=== PATIENT | female | born 1970 | race Caucasian/White ===

== ENCOUNTER 2019-09-16 06:00 | Outpatient (RCR) | payer BC, SELFPAY | END 2019-10-05 23:59 | disposition home or self-care (01) | LOC: SPT 06:00 | PROVIDERS: Family Provider Family Medicine; Referring Provider Physician Assistant; Visit Provider Physician Assistant | DX: Z47.89 Encounter for other orthopedic aftercare (principal) | CPT/HCPCS: 97110; 97161 ==

== ENCOUNTER 2019-10-06 06:00 | Outpatient (RCR) | payer BC, SELFPAY | END 2019-11-04 23:59 | disposition home or self-care (01) | LOC: SPT 06:00 | PROVIDERS: Family Provider Family Medicine; Referring Provider Physician Assistant; Visit Provider Physician Assistant | DX: Z47.89 Encounter for other orthopedic aftercare (principal); M25.511 Pain in right shoulder; M25.611 Stiffness of right shoulder, not elsewhere classified | CPT/HCPCS: 97110; 97140 ==

== ENCOUNTER 2019-11-05 06:00 | Outpatient (RCR) | payer BC, SELFPAY | END 2019-12-05 23:59 | disposition home or self-care (01) | LOC: SPT 06:00 | PROVIDERS: PCP Family Medicine; Referring Provider Physician Assistant; Visit Provider Physician Assistant | DX: Z47.89 Encounter for other orthopedic aftercare (principal); M25.611 Stiffness of right shoulder, not elsewhere classified; M25.511 Pain in right shoulder | CPT/HCPCS: 97110; 97140 ==

== ENCOUNTER 2021-02-11 14:42 | Outpatient (CLI) | payer OTHER, SELFPAY ==
[2021-02-11 14:50] VITALS: BP 137/89; PULSE 82; RESP 16; TEMP 36.5; O2SAT 97; BMI 26.6
[2021-02-11 15:15] VITALS: BP 140/89; PULSE 74; RESP 18; TEMP 36.1; O2SAT 96
--- NOTE | 2021-02-11 15:54 | A.OFFVIS_ITS ---
Patient Information Symptom onset date: 02/10/21 Treatment prior to arrival: none [facility] COVID test results: No Data to Display outside results available, scanned Criteria/Plan Inclusion/Exclusion Criteria age >/= 12 years, weight >/= 40kg /88lbs, symptom onset less than 10 days ago and + direct Sars-Cov-2 test less than 7-10 days ago cardiovascular disease or htn not requiring hospitalization, not requiring oxygen (if not chronically on oxygen) and no increase oxygen requirement (if chronically on oxygen) Patient education patient/caregiver received/reviewed fact sheet, Emergency Use Authorization /unapproved drug status discussed with patient/caregiver, alternatives to this treatment discussed with patient/caregiver, risks and benefits of medication reviewed with patient/caregiver, patient/caregiver given opportunity for questions, which were answered and patient/caregiver consents to receiving Monoclonal Antibody Treatment Plan for treatment Meets criteria for Monoclonal Antibody infusion Ordering Monoclonal Antibody infusion for today
[2021-02-11 16:17] VITALS: BP 166/99; PULSE 72; RESP 18; TEMP 36.3; O2SAT 96
== END 2021-02-11 14:43 | disposition home or self-care (01) ==
PROVIDERS: PCP Family Medicine; Visit Provider Hospitalist
DX: U07.1 COVID-19 (principal)
CPT/HCPCS: 96365

== ENCOUNTER 2024-09-08 11:01 | Emergency (ER) | payer MEDICAID, SELFPAY ==
[2024-09-08 11:05] VITALS: BP 142/82; PULSE 114; RESP 18; TEMP 36.8; O2SAT 96; BMI 29.0
--- NOTE | 2024-09-08 11:05 | XR_ITS ---
WS: [id number] XR chest 1V portable [id number] REASON FOR EXAM: paresthesias FINDINGS: The heart and the mediastinum are within normal limits. Calcified granulomatous disease bilaterally. Ill-defined linear density in the left lower lung field is felt to represent atelectasis or fibrotic scar. Lung ross are otherwise clear with no evidence of acute abnormality. No acute pleural abnormality. Total reverse right shoulder arthroplasty. Moderately severe osteoarthropathy of the left shoulder. Moderate degenerative spondylosis of the mid and lower thoracic spine. XR/XR chest 1V portable [id number] IMPRESSION: No acute chest abnormality.
--- NOTE | 2024-09-08 11:05 | CT_ITS ---
WS: [id number] CT HEAD NONCONTRAST HISTORY: Symptoms of acute stroke, left-sided weakness. TECHNIQUE: Contiguous axial imaging performed through the brain. Bone and soft tissue windows. Sagittal and coronal reformats reviewed. All CT scans at [facility] use at least one of these dose optimization techniques: automated exposure control; mA and/or kV adjustment per patient size (includes targeted exams where dose is matched to clinical indication); or iterative reconstruction. DLP: 1094.50 mGy COMPARISON: None available. No acute intracranial hemorrhage, midline shift or mass effect. No significant atrophy. No prior infarct or significant small vessel disease. Ventricles: Normal size with no hydrocephalus. Paranasal sinuses: As visualized are clear. Mastoid air cells: Well pneumatized. Calvarium and scalp: Skull is intact with no soft tissue edema or swelling. CT/CT head thrombolytic [id number] IMPRESSION: Negative head CT. Notified Gregg Belcher MD at 09/08/2024 11:18 AM.
--- NOTE | 2024-09-08 11:05 | ECG_ITS ---
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 Measurements Intervals [place] Rate: 106 P: 46 WY: 159 QRS: 69 QRSD: 89 T: 62 QT: 361 QTc: 480 Interpretive Statements SINUS TACHYCARDIA No previous ECG available for comparison Electronically Signed On 09-11-2024 18:08:51 [employer] CONVERTER by Burke Malik M.D. [id number]
--- NOTE | 2024-09-08 11:08 | W.ED.NEUROSD ---
HPI - Neuro Symptoms/Deficit General: Chief Complaint: Neuro Symptoms/Deficit Stated Complaint: stroke like symptoms Time Seen by Provider: 09/08/24 11:03 Source: patient Mode of arrival: ambulatory Limitations: no limitations History of Present Illness: 53-year-old female states that she woke up this morning feeling tingling in her hands she states that throughout the day started progressive having some tingling to the left side of her face and down her arm. She denies any slurred speech denies headache denies any difficulty walking denies any vision changes. Associated symptoms: Deny chest pain, headache(s), nausea or vomiting Related Data Home Medications ?Medication ?Instructions ?Recorded ?Confirmed diclofenac sodium 75 mg 75 mg PO BID 09/08/24 09/08/24 tablet,delayed release hydrocodone 10 mg-acetaminophen 1 tab PO Q4H 09/08/24 09/08/24 325 mg tablet lisdexamfetamine 60 mg capsule 60 mg PO DAILY 09/08/24 09/08/24 (Vyvanse) losartan 50 mg tablet 50 mg PO DAILY 09/08/24 09/08/24 pantoprazole 40 mg tablet,delayed 40 mg PO BID 09/08/24 09/08/24 release sertraline 50 mg tablet 50 mg PO DAILY 09/08/24 09/08/24 tamsulosin 0.4 mg capsule 0.4 mg PO DAILY 09/08/24 09/08/24 trazodone 50 mg tablet 50 - 100 mg PO QPM 09/08/24 09/08/24 Previous Rx's ?Medication ?Instructions ?Recorded aspirin 81 mg capsule 81 mg PO DAILY #30 caps 09/08/24 atorvastatin 40 mg tablet (Lipitor) 40 mg PO DAILY #30 tabs 09/08/24 Allergies Allergy/AdvReac Type Severity Reaction Status Date / Time No Known Allergies Allergy Verified 02/11/21 15:33 Review of Systems Const: Denies: fever(s), chills, body aches or change in appetite Eyes: Denies: blurry vision ENMT: Denies: throat pain or dental pain Card: Denies: chest pain Resp: Denies: dyspnea GI: Denies: abdominal pain, nausea, vomiting or diarrhea Musc: Denies: neck pain or back pain Skin/Breast: Denies: rash Neuro: Reports: numbness in extremities; Denies: headache(s) NIH stroke score NIHSS: Level Of Consciousness - 1a: 0 Level Of Consciousness Questions - 1b: Both Correct Level Of Consciousness Commands - 1c: Both Correct Best Gaze - 2: Normal Visual Mehta - 3: No Visual Loss Facial Palsy - 4: Normal Motor Arm Right - 5: No Drift Motor Arm Left - 5: No Drift Motor Leg Right - 6: No Drift Motor Leg Left - 6: No Drift Limb Ataxia - 7: Absent Sensory - 8: Mild To Moderate Loss Best Language - 9: No Aphasia Dysarthia - 10: Normal Extinction And Inattention - 11: 0 Score: Total Score: 1 Physical Exam Const: COMMON NORMALS: patient oriented x3 HENMT: COMMON NORMALS: normocephalic and atraumatic HEAD & SCALP: normocephalic and atraumatic Eye: COMMON NORMALS: Equal, round and reactive pupils present and EOMs intact bilaterally PUPIL: Yes Equal, round and reactive pupils present Neck/C-Spine: COMMON NORMALS: full ROM and supple Chest: COMMONS NORMALS: normal inspection of the chest Resp: COMMON NORMALS: normal respiratory effort, No retractions, No use of accessory muscles and clear to auscultation bilaterally AUSCULTATION: clear to auscultation bilaterally Cardio: COMMON NORMALS: regular rate, regular rhythm and No murmurs present (Cardio) RATE: regular rate RHYTHM: regular rhythm GI: COMMON NORMALS: Normal to inspection, nondistended, normoactive bowel sounds present, Soft to palpation, non-tender and no masses PALPATION: Yes Soft to palpation Extremity: COMMON NORMALS: normal to inspection and full ROM Neuro: COMMON NORMALS: patient oriented x3, moves all extremities and no focal motor deficits CRANIAL NERVES: Yes CN normal except as noted GAIT: Yes Normal gait present MOTOR EXAM: 5/5 motor strength present throughout Psych: COMMON NORMALS: mental status grossly normal, Normal thought process present and cooperative THOUGHT PROCESS: Normal thought process present Skin: COMMON NORMALS: no rashes or lesions noted and no wounds GENERAL SKIN EXAM: no rashes or lesions noted Course Vital Signs: Vital signs: Vital Signs Temperature 98.3 F 09/08/24 11:05 Pulse Rate 94 09/08/24 15:42 Respiratory Rate 18 09/08/24 11:05 Blood Pressure 127/86 09/08/24 15:42 Pulse Oximetry 95 09/08/24 15:42 Oxygen Delivery Me thod Room Air 09/08/24 14:44 MDM - Neuro Symptoms/Deficit Medical Decision Making Patient presents here with left-sided facial numbness was going to admit she did not want to be admitted so ordered MRI along with ultrasounds the ER shows no signs of acute stroke we will start her on atorvastatin along with aspirin I spoke to Dr. Lu was seen patient ER will follow-up she is stable for discharge return if worsening. Medical Records I reviewed the patient's medical records. Lab Data I reviewed the patient's lab results. 09/08/24 11:33 09/08/24 11:33 Radiology Impressions Chest X-Ray 09/08/24 11:05 IMPRESSION: No acute chest abnormality. Head CT 09/08/24 11:05 IMPRESSION: Negative head CT. Notified Gregg Belcher MD at 09/08/2024 11:18 AM. Head MRI 09/08/24 12:16 IMPRESSION: 1. Normal MRI brain with contrast. 2. No acute or remote infarct. 3. No hemorrhage. Laboratory Results WBC 9.73 10^3/uL (3.29-11.43) 09/08/24 11:33 RBC 4.39 10^6/uL (3.85-5.65) 09/08/24 11:33 Hgb 13.50 g/dL (11.27-16.99) 09/08/24 11:33 Hct 41.7 % (36-47) 09/08/24 11:33 MCV 95.0 fl (85-98) 09/08/24 11:33 MCH 30.8 pg (27-33) 09/08/24 11:33 MCHC 32.4 g/dL (30-55) 09/08/24 11:33 RDW 13.3 % (12.1-15.1) 09/08/24 11:33 Plt Count 249 10^3/cmm (157-399) 09/08/24 11:33 MPV 9.6 fL (7.4-10.4) 09/08/24 11:33 Neut % (Auto) 67.8 % 09/08/24 11:33 Lymph % (Auto) 25.3 % 09/08/24 11:33 Mcminn % (Auto) 5.7 % 09/08/24 11:33 Eos % (Auto) 0.6 % 09/08/24 11:33 Baso % (Auto) 0.3 % 09/08/24 11:33 Neut # (Auto) 6.60 10^3/uL (1.8-7.7) 09/08/24 11:33 Lymph # (Auto) 2.5 10^3/uL (0.8-4.8) 09/08/24 11:33 Mcminn # (Auto) 0.6 10^3/uL (0.2-0.9) 09/08/24 11:33 Eos # (Auto) 0.1 10^3/uL (0.0-0.8) 09/08/24 11:33 Baso # (Auto) 0.0 10^3/uL (0.0-0.1) 09/08/24 11:33 Nucleated RBC % (auto) 0 % 09/08/24 11:33 Nucleated RBCs # 0.0 /100WBC 09/08/24 11:33 PT 11.60 SECONDS (12.1-14.9) L 09/08/24 11:33 INR 0.80 (0.8-1.2) 09/08/24 11:33 APTT 25.4 SECONDS (23.9-36.7) 09/08/24 11:33 Sodium 140 mmol/L (136-145) 09/08/24 11:33 Potassium 3.4 mmol/L (3.5-5.1) L 09/08/24 11:33 Chloride 92 mmol/L (98-107) L 09/08/24 11:33 Carbon Dioxide 32 mmol/L (22-29) H 09/08/24 11:33 Anion Gap 19.4 (5-19) H 09/08/24 11:33 BUN 10 mg/dL (6-20) 09/08/24 11:33 Creatinine 1.1 mg/dL (0.5-0.9) H 09/08/24 11:33 GFR Calculation 52.0 mL/min (90-130) L 09/08/24 11:33 Glucose 139 mg/dL (65-115) H 09/08/24 11:33 POC Glucose 152 mg/dL (70-110) H 09/08/24 11:23 Calculated Osmolality 291 mOsm/kg (285-295) 09/08/24 11:33 Calcium 9.3 mg/dL (8.5-10.5) 09/08/24 11:33 Total Bilirubin 0.5 mg/dL (0.15-1.2) 09/08/24 11:33 AST 37 U/L (0-32) H 09/08/24 11:33 ALT 47 U/L (0-33) H 09/08/24 11:33 Alkaline Phosphatase 105 U/L (35-105) 09/08/24 11:33 Total Protein 7.2 g/dL (6.6-8.7) 09/08/24 11:33 Albumin 4.2 g/dL (3.5-5.2) 09/08/24 11:33 Globulin 3.0 g/dL (1.3-4.6) 09/08/24 11:33 Urine Color Yellow (Yellow) 09/08/24 14:50 Urine Appearance Clear (CLEAR) 09/08/24 14:50 Urine pH 5.5 (5-7) 09/08/24 14:50 Ur Specific [place] 1.015 (1.005-1.030) 09/08/24 14:50 Urine Protein Negative (Negative) 09/08/24 14:50 Urine Glucose (UA) Negative (Normal) 09/08/24 14:50 Urine Ketones Negative (Negative) 09/08/24 14:50 Urine Blood Negative (Negative) 09/08/24 14:50 Urine Nitrate Negative (Negative) 09/08/24 14:50 Urine Bilirubin Negative (Negative) 09/08/24 14:50 Urine Urobilinogen 0.2 mg/dL (Negative) 09/08/24 14:50 Ur Leukocyte Esterase Negative (Negative) 09/08/24 14:50 Amorphous Sediment Not Reportable 09/08/24 14:50 Urine Opiates Screen Positive ng/mL (Negative) H 09/08/24 14:50 Ur Barbiturates Screen Negative ng/mL (Negative) 09/08/24 14:50 Ur Phencyclidine Scrn Negative ng/mL (Negative) 09/08/24 14:50 Ur Amphetamines Screen Positive ng/mL (Negative) H 09/08/24 14:50 U Benzodiazepines Scrn Positive ng/mL (Negative) H 09/08/24 14:50 Urine Cocaine Screen Negative ng/mL (Negative) 09/08/24 14:50 U Marijuana (THC) Screen Negative ng/mL (Negative) 09/08/24 14:50 All radiology interpretation(s) finalized by discharge EKG Data EKG 1: I personally reviewed and interpreted this EKG as follows: EKG interpretation date: 09/08/24 EKG interpretation time: 11:05 Interpretation: sinus tach hr [address] elevation qrs 89 qtc 423 Discharge Plan Discharge Patient Disposition: Home Clinical Impression: Numbness and tingling of left side of face Condition: Stable Prescriptions: New aspirin 81 mg capsule 81 mg PO DAILY Qty: 30 0RF atorvastatin [Lipitor] 40 mg tablet 40 mg PO DAILY Qty: 30 0RF No Action losartan 50 mg tablet 50 mg PO DAILY trazodone 50 mg tablet 50 - 100 mg PO QPM hydrocodone-acetaminophen 10-325 mg tablet 1 tab PO Q4H tamsulosin 0.4 mg capsule 0.4 mg PO DAILY pantoprazole 40 mg tablet,delayed release (DR/EC) 40 mg PO BID diclofenac sodium 75 mg tablet,delayed release (DR/EC) 75 mg PO BID sertraline 50 mg tablet 50 mg PO DAILY lisdexamfetamine [Vyvanse] 60 mg capsule 60 mg PO DAILY Discharge Orders: Discharge ED (Routine); Ordered 09/08/24 Ordered By: Gregg Belcher Referrals: Nathaniel Lu MD [Physician] - 4-7 days Riaz Pelaez MD [Primary Care Provider] - Discharge Diet: Advance as tolerated Discharge Activity: Resume usual activity Patient Instructions: Paresthesia (ED) Print Language: Nauruan Coding Level of Care Code ED Employee Counselor for Jaimeg Mindy
[2024-09-08 11:29] LABS: Glucose Point of Care 152 mg/dL (70-110)
[2024-09-08 11:40] LABS: Basophils % 0.3 %; Eosinophils # 0.1 10^3/uL (0.0-0.8); Eosinophils % 0.6 %; Hematocrit 41.7 % (36-47); Lymphocytes # 2.5 10^3/uL (0.8-4.8); Lymphocytes % 25.3 %; Mean Corpuscular HGB Conc 32.4 g/dL (30-55); Mean Corpuscular Hemoglobin 30.8 pg (27-33); Mean Platelet Volume 9.6 fL (7.4-10.4); Monocytes # 0.6 10^3/uL (0.2-0.9); Monocytes % 5.7 %; Neutrophils % 67.8 %; Nucleated Red Blood Cells % 0 %; Platelet Count 249 10^3/cmm (157-399); Red Blood Count 4.39 10^6/uL (3.85-5.65); Red Cell Distribution Width 13.3 % (12.1-15.1); White Blood Count 9.73 10^3/uL (3.29-11.43)
--- NOTE | 2024-09-08 11:50 | PM.CONSULT ---
Providers/Reason For Consult Consulting Physician/Specialty*: Nathaniel Lu MD neurology and epilepsy Reason for Consult*: Acute care/code stroke emergency department room #15 Primary Care Provider: Riaz Pelaez MD History of Present Illness History of Present Illness Sarah Franco is a 53 year old female with a history of hypertension and bilateral carpal tunnel release in the past. The patient stated that she awakened around 6:45 AM on 09/08/2024 and was experiencing bilateral hand numbness and tingling. Approximately 1-1/2 hours later the patient stated she began experiencing numbness in the left and right face but more over the left face and a V1 through V3 distribution. The patient denied weakness or speech difficulty or visual changes. Code stroke was initiated at 11:06 AM on 09/08/2024. Stat noncontrast head CT obtained on 09/08/2024 revealed no acute findings. NIH score = 1 (decreased sensation left face and a V1 through V3 distribution and left arm) Glucose Accu-Chek 152. Note: Since the patient symptoms were present upon awakening and her NIH score =1. The patient was not a candidate for intravenous thrombolytics and no intravenous thrombolytics were administered. Drug allergies: None Current medications: Vyvanse 60 mg p.o. daily Xanax Neurontin Losartan 50 mg p.o. daily Protonix 40 mg p.o. twice daily Diclofenac sodium 75 mg p.o. twice daily Hydrocodone/acetaminophen 1 p.o. every 4 hours Zoloft 50 mg p.o. daily Flomax 0.4 mg p.o. daily Trazodone 50 to 100 mg p.o. nightly Past medical history: Hypertension Bilateral carpal tunnel release, remote Cholecystectomy Habits: The patient vapes nicotine. Patient was educated on potential health risks associated with vaping. Family history: Remarkable for a maternal grandfather who experienced a myocardial infarction Remarkable for a paternal grandfather who experienced a stroke Remarkable for father who experienced a myocardial infarction Review of Systems General: Reports: 10 or more systems reviewed and unremarkable except in HPI and below Medications/Allergies Home Medications ?Medication ?Instructions ?Recorded ?Confirmed ?Last Taken ?Type diclofenac sodium 75 mg 75 mg PO BID 09/08/24 09/08/24 Unknown History tablet,delayed release hydrocodone 10 mg-acetaminophen 1 tab PO Q4H 09/08/24 09/08/24 Unknown History 325 mg tablet lisdexamfetamine 60 mg capsule 60 mg PO DAILY 09/08/24 09/08/24 Unknown History (Vyvanse) losartan 50 mg tablet 50 mg PO DAILY 09/08/24 09/08/24 Unknown History pantoprazole 40 mg tablet,delayed 40 mg PO BID 09/08/24 09/08/24 Unknown History release sertraline 50 mg tablet 50 mg PO DAILY 09/08/24 09/08/24 Unknown History tamsulosin 0.4 mg capsule 0.4 mg PO DAILY 09/08/24 09/08/24 Unknown History trazodone 50 mg tablet 50 - 100 mg PO QPM 09/08/24 09/08/24 Unknown History Allergies Allergy/AdvReac Type Severity Reaction Status Date / Time No Known Allergies Allergy Verified 02/11/21 15:33 Vitals/I&O/Wt Last Vital Signs Temp 98.3 F 09/08/24 11:05 Pulse 114 H 09/08/24 11:05 Resp 18 09/08/24 11:05 BP 142/82 09/08/24 11:05 Pulse Ox 96 09/08/24 11:05 O2 Del Method Room Air 09/08/24 11:05 Weight last 48 hrs Weight 174 lb 2.643 oz Physical Exam Narrative: Stat noncontrast head CT obtained on 09/08/2024 revealed no acute findings. NIH score = 1 (decreased sensation left face and a V1 through V3 distribution and left arm) Glucose Accu-Chek 152 . The patient is alert and oriented x 3. Speech fluent. Head normocephalic. Neck supple. Cranial nerves II through XII revealed decreased sensation over the left face and a V1-V3 distribution as well as left upper extremity. Other cranial nerves were intact. Pupils 3 to 4 mm round reactive to light and accommodation. Extraocular movements intact. Visual ross full via confrontation. Motor testing 5/5 bilaterally. There was no drift. There was no ataxia in the upper or lower extremities. There was no extinction on double sensory stimulation. Deep tendon reflex revealed plantar responses bilaterally. Throat clear. Lungs clear. Heart regular rhythm and rate. Extremities were negative for cyanosis. Data 09/08/24 11:33 09/08/24 11:33 A&P Assessment and plan (1) Numbness and tingling of left side of face: Impression: 1. 53 year old female with a history of hypertension and remote bilateral carpal tunnel release who stated that she awakened around 6:45 AM on 09/08/2024 and was experiencing bilateral hand numbness and tingling. Approximately 1-1/2 hours later the patient stated she began experiencing numbness in the left and right face but more over the left face and a V1 through V3 distribution. The patient denied weakness or speech difficulty or visual changes. Code stroke was initiated at 11:06 AM on 09/08/2024. Assess for right thalamic stroke note: Since the patient's last known well could not be determined and stat noncontrast head CT obtained on 09/08/2024 revealed no acute findings and NIH score = 1 (decreased sensation left face and a V1 through V3 distribution and left arm) and Glucose Accu-Chek 152, the patient was not a candidate for intravenous thrombolytics and no intravenous thrombolytics were administered. Plan: 1. Recommend obtaining head MRI with and without contrast with MRA of the head and neck to assess for space-occupying lesions, right thalamic stroke and evaluate for extracranial and intracranial stenosis 2. Recommend obtaining 2D echocardiogram to assess for embolic source for possible stroke 3. Recommend starting low-dose aspirin 81 mg p.o. every morning with Crestor 20 mg p.o. nightly per NIH stroke protocol 4. Neurochecks and vital signs per stroke protocol 5. Recommend obtaining Occupational Therapy and physical therapy consults 6. Patient educated on potential health risks associated with vaping nicotine 7. Stroke education/stroke pamphlet for patient and family 8. If head MRI reveals signs of acute stroke recommend patient discontinue diclofenac (2) Left sided numbness: (3) Paresthesia: PDMP PDMP Reviewed: Not Reviewed Consult Attestations Medical Necessity Statement: The patient was evaluated by neurology for acute care/code stroke emergency department room #15 Coding Level of Care Code 71769 Diagnoses Numbness and tingling of left side of face R20.0; R20.2 Left sided numbness R20.0 Paresthesia R20.2
[2024-09-08 11:53] LABS: Partial Thromboplastin Time 25.4 SECONDS (23.9-36.7)
[2024-09-08 12:08] LABS: Alanine Aminotransferase 47 U/L (0-33); Albumin Level 4.2 g/dL (3.5-5.2); Alkaline Phosphatase 105 U/L (35-105); Anion Gap 19.4 (5-19); Aspartate Amino Transferase 37 U/L (0-32); Blood Urea Nitrogen 10 mg/dL (6-20); Calcium 9.3 mg/dL (8.5-10.5); Carbon Dioxide 32 mmol/L (22-29); Chloride 92 mmol/L (98-107); Creatinine Clr Calc Pharmacy 61.4383; Glucose 139 mg/dL (65-115); Osmolality Calculated 291 mOsm/kg (285-295); Potassium 3.4 mmol/L (3.5-5.1); Sodium 140 mmol/L (136-145); Total Bilirubin 0.5 mg/dL (0.15-1.2); Total Protein 7.2 g/dL (6.6-8.7)
--- NOTE | 2024-09-08 12:16 | USCV_ITS ---
Sarah Franco Age: 53 Gender: F : 1970 Exam Date: 09/08/2024 13:46 Ordering Phys: Gregg Belcher MD Technologist: Exam Location: [facility] – [place] Indication: Risk Factors: Previous Vascular Surgery: Right Brachial BP: / Left Brachial BP: / Right Left Velocity (cm/s) Spectral Plaque Velocity (cm/s) Spectral Plaque Syst/Diast Broadening Syst/Diast Broadening 86.80/ 24.20 Prox CCA 92.80 / 22.60 94.10/ 28.60 Mid CCA 68.70 / 22.20 74.20/ 25.00 Distal CCA 61.30 / 27.70 96.60/ 25.00 Prox ICA 59.40 / 24.00 / Mid ICA 78.00 / 35.20 76.50/ 28.60 Distal ICA 79.90 / 38.90 76.80 ECA 78.00 1.30 ICA/CCA 1.30 Antegrade Vertebral Antegrade 42.00/ 17.10 cm/s 57.50/ 27.70 cm/s Tri Subclavian Tri 114.8 143.2 0 0 FINDINGS Comparison: none available. No significant elevation of systolic or diastolic velocities. Waveforms are normal. Mild carotid plaque. Antegrade vertebral arteries. CONCLUSIONS Bilateral ICA stenosis less than 50%. Dr. Jocelyn Cox DO (Electronically Signed) Final Date: 08 September 2024 15:16 S
--- NOTE | 2024-09-08 12:16 | USCV_ITS ---
Sarah Franco Age: 53 Gender: F : 1970 Exam Date: 09/08/2024 13:28 Ordering Phys: Gregg Belcher MD Technologist: Exam Location: [facility] [place] Indication: cva tia BP: 127 / 73 HR: 85 Rhythm: Sinus Technical Quality: Adequate MEASUREMENTS (Male / Female) Normal Values 2D ECHO LV Diastolic Diameter PLAX 4.3 cm 4.2 - 5.9 / 3.9 - 5.3 cm IVS Diastolic Thickness 1.2 cm 0.6 - 1.0 / 0.6 - 0.9 cm IVS Systolic Thickness 1.5 cm LVPW Diastolic Thickness 1.4 cm 0.6 - 1.0 / 0.6 - 0.9 cm LVPW Systolic Thickness 1.6 cm LVOT Diameter 2.1 cm LV Ejection Fraction 2D Teich 62.6 % LV Ejection Fraction MOD 4C 62.6 % LV Ejection Fraction MOD 2C 74.6 % LV Ejection Fraction 2C AL 76.4 % LA Diameter 3.5 cm RA Systolic Volume 4C AL 22.7 ml RA Systolic Volume 4C MOD 22.0 ml Aorta at Sinotubular Diameter 2.6 cm IVC Diameter 1.1 cm M-MODE LA Ao Ratio MM 1.2 AV Cusp Separation MM 2.2 cm DOPPLER AV Peak Velocity 118.0 cm/s LVOT Peak Velocity 100.0 cm/s AV Area Cont Eq vti 3.6 cm squared AV Area Cont Eq pk 2.9 cm squared MV Peak Velocity 151.0 cm/s MV Area PHT 3.2 cm squared Mitral E to A Ratio 0.8 TR Peak Velocity 203.0 cm/s TR Peak Gradient 16.5 mmHg TV Peak E Velocity 80.0 cm/s FINDINGS Left Ventricle Normal left ventricular size, systolic function and wall thickness, with no regional wall motion abnormalities. Left ventricular ejection fraction is estimated at 60 %. Grade I/IV diastolic dysfunction (abnormal relaxation filling pattern), normal to mildly elevated filling pressures. Right Ventricle The right ventricle is normal in size and function. Right Atrium The right atrium is normal in size. Left Atrium The left atrium is normal in size. Mitral Valve Structurally normal mitral valve without significant stenosis or prolapse. There is no mitral regurgitation. Aortic Valve Structurally normal aortic valve without significant sclerosis or stenosis. There is no aortic regurgitation. Tricuspid Valve Structurally normal tricuspid valve without significant stenosis or regurgitation. Pulmonary artery systolic pressure is normal. Pulmonic Valve Structurally normal pulmonic valve without significant stenosis. There is no pulmonic regurgitation. Pericardium Normal pericardium without effusion. Aorta Normal ascending aorta dimension. IVC The inferior vena cava appears normal. CONCLUSIONS Normal left ventricular size, systolic function and wall thickness, with no regional wall motion abnormalities. Left ventricular ejection fraction is estimated at 60 %. Grade I/IV diastolic dysfunction (abnormal relaxation filling pattern), normal to mildly elevated filling pressures. There is no pericardial effusion. No significant valve abnormalities. Right atrial pressure is around 5 mm of mercury. Dipika Merino MD (Electronically Signed) Final Date: 08 September 2024 21:29 S
--- NOTE | 2024-09-08 12:16 | MR_ITS ---
WS: [id number] MRI BRAIN WITH AND WITHOUT CONTRAST HISTORY: cva COMPARISON: Head CT 09/08/2024 TECHNIQUE: Multiplanar imaging performed through the brain with MultiHance 16 ml's IV. Diffusion imaging is normal. No evidence for an acute infarct. No prior infarct or ischemia. No lacunar infarcts. There are a very few tiny subcortical white matter lesions. Normal hippocampal formations. No susceptibility artifacts or prior lacunar infarcts. Ventricles and extra-axial spaces are normal. Clivus and pituitary gland are normal. Visualized posterior fossa and brainstem are also normal. Postcontrast images are negative for masses or vascular malformations. Dural venous sinuses are normal. Paranasal sinuses: Well aerated with no significant disease. Mastoid air cells: Normal. Calvarium and scalp: Normal. MR/MR head wo/w con [id number] IMPRESSION: 1. Normal MRI brain with contrast. 2. No acute or remote infarct. 3. No hemorrhage.
--- NOTE | 2024-09-08 12:40 | PC.NURSE ---
LEFT FOR MRI AT 1240
[2024-09-08 12:44] VITALS: BP 113/80; PULSE 91; O2SAT 93
[2024-09-08] MEDS: gadobenate dimeglumine 20 mL vial 16 ML IV (13:02)
--- NOTE | 2024-09-08 13:19 | PC.NURSE ---
PATIENT BACK FROM MRI @1112
[2024-09-08 13:21] VITALS: BP 127/73; PULSE 83; O2SAT 96
[2024-09-08 14:44] VITALS: BP 138/92; PULSE 82; O2SAT 94
--- NOTE | 2024-09-08 14:47 | PC.NURSE ---
UPON ASSESSMENT, PATIENT'S RIGHT EYE IS SYMMETRICAL WITH FACIAL FEATURES. PATIENT PREVIOUSLY HAD RIGHT EYE CLOSED. RIGHT EYE RESOLVED AT THIS TIME.
[2024-09-08 14:56] LABS: Add Urine Microscopic? NO
[2024-09-08 15:02] LABS: Bilirubin Urine Negative (Negative); Blood Urine Negative (Negative); Glucose Urine UA Negative (Normal); Ketones Urine Negative (Negative); Leukocyte Esterase Urine Negative (Negative); Nitrate Urine Negative (Negative); Protein Urine Negative (Negative); Specific Gravity, Urine 1.015 (1.005-1.030); Urine Appearance Clear (CLEAR); Urine Color Yellow (Yellow); Urobilinogen Urine 0.2 mg/dL (Negative); pH Urine 5.5 (5-7)
[2024-09-08 15:07] LABS: Charge for UA Resulting for Rev
[2024-09-08 15:09] LABS: Amphetamines Screen Urine Positive (Negative); Barbiturates Screen Urine Negative (Negative); Benzodiazepines Screen Urine Positive (Negative); Cocaine Screen Urine Negative (Negative); Opiate Screen Urine Positive (Negative); PCP Screen Urine Negative (Negative); THC Screen Urine Negative (Negative)
[2024-09-08 15:42] VITALS: BP 127/86; PULSE 94; O2SAT 95
--- NOTE | 2024-09-08 16:25 | DCPLANNER ---
messaged neuro for er f/u
== END 2024-09-08 15:45 | disposition home or self-care (01) ==
PROVIDERS: Emergency Provider Emergency Medicine; PCP Family Medicine
DX: R20.2 Paresthesia of skin (principal)
CPT/HCPCS: 36415; 36416; 70450; 70553; 71045; 80053; 80306; 81003; 82962; 85025; 85610; 85730; 93005; 93306; 93880; 96374; 99285

== ENCOUNTER → 2025-02-15 12:10 | Outpatient (BNVA) | payer MEDICAID, SELFPAY | PROVIDERS: PCP Family Medicine; Visit Provider Psychiatry & Neurology Neurology | DX: R20.0 Anesthesia of skin (principal); R20.2 Paresthesia of skin; Z82.49 Family history of ischemic heart disease and other diseases of the circulatory system | CPT/HCPCS: 36415; 82306; 82565; 82607; 82746; 83090; 83735; 83921; 84439; 84443; 85210; 85300; 85303; 85306; 85613; 85651; 85730; 86140; 86146; 86147; 86160; 86162; 86235; 86255; 86376; 86431; 86617 ==